=== PATIENT | female | born 1975 | race Caucasian/White ===

== ENCOUNTER 2021-10-09 12:25 | Emergency (ER) | payer OTHER, SELFPAY ==
[2021-10-09 12:42] VITALS: BP 110/62; PULSE 66; O2SAT 98
[2021-10-09 13:35] VITALS: BP 115/71; PULSE 68; TEMP 35.5; O2SAT 95; BMI 18.8
[2021-10-09 13:35] LABS: Ethanol < 10 mg/dL
[2021-10-09 13:38] LABS: Amphetamine Screen Urine Not Detected (Not Detect); Barbiturates, Urine Not Detected (Not Detect); Benzodiazepines Screen Urine POSITIVE (Not Detect); Cannabinoid Screen Urine Not Detected (Not Detect); Cocaine Screen Urine Not Detected (Not Detect); Fentanyl, urine POSITIVE (Not Detect); Opiate Screen Urine Not Detected (Not Detect); Phencyclidine Screen Urine Not Detected (Not Detect)
--- NOTE | 2021-10-09 13:40 | ED_ITS ---
HPI - Medical Clearance General Chief complaint: Medical Clearance Stated complaint: Medical Clearance Time Seen by Provider: 10/09/21 13:39 Source: patient Mode of arrival: EMS Limitations: no limitations History of Present Illness HPI Narrative: used 06/28 cyndy woo MD complaint: medical clearance requested Onset (ago): day(s) (1) Reason for Medical Clearance: intoxication Place: street Alleged Intoxication: Yes Compliant with Home Medications: Yes Traumatic Symptoms: denies traumatic injury Associated Symptoms: denies other symptoms Treatments Prior to Arrival: none Related Information Allergies Allergy/AdvReac Type Severity Reaction Status Date / Time No Known Allergies Allergy Verified 10/09/21 13:34 Review of Systems Review of Systems: Constitutional : No Fever, No Chills ENT/Mouth : No Ear Pain, No Nasal Congestion, No sore throat Eyes: No Eye Pain, No Swelling, No Redness Cardiovascular : No Chest Pain, No SOB Respiratory : No Cough, No Sputum, No Dyspnea Gastrointestinal : No Nausea, No Vomiting, No Diarrhea, No Hematochezia, No Melena Genitourinary : No Dysuria, No Urinary Frequency, No Hematuria Musculoskeletal : No Myalgias Skin : No Skin Lesions, No rash Neuro : No Weakness, No Numbness, No Paresthesias, No Dizziness, No Headache Psych : no Anxiety, no Depression, no SI/HI PMFSH Past Medical History Medical History (Updated 10/09/21 @ 13:55 by Paulina Morel DO) Substance abuse Social History Social History Advance Directives: No Physical Exam Vital Signs: Vital Signs: Last Vital Signs Temp 96 F L 10/09/21 13:35 Pulse 68 10/09/21 13:35 BP 115/71 10/09/21 13:35 Pulse Ox 95 10/09/21 13:35 BMI result Body Mass Index 18.8 Appearance: Alert. Oriented X3. No acute distress. Sleepy at times but easily woken with verbal stimuli Eyes: Pupils equal, round and reactive to light. ENT: Pharynx normal. Neck: Normal inspection. Neck supple. CVS: Normal heart rate and rhythm. Pulses normal. Respiratory: No respiratory distress. Breath sounds normal. Abdomen: Soft and non-tender. Skin: Skin warm and dry. Normal skin color. Normal skin turgor. Extremities: No lower extremity edema. Neuro: Oriented X 3. No motor deficit. No sensory deficit. Course Course Course Narrative: patient to be observed - will DC home once more awake, signed out to Jagdish JOHN but anticipate DC back to [facility] without issue MDM - Medical Clearance MDM Narrative Medical decision making narrative: 46 yo female with hx of substance abuse currently at [facility] had issue with another resident - admits to taking 1/2 of a xanny bar came here requesting urine tox so she can go back to [facility] has no SI. Will obtain Utox. She is sleepy will observe until more awake. Lab Data Labs: Lab Results 10/09/21 10/09/21 Range/Units 13:11 13:11 Urine Opiates Screen Not Detected (Not Detect) Urine Fentanyl Screen POSITIVE H (Not Detect) Ur Barbiturates Screen Not Detected (Not Detect) Ur Phencyclidine Scrn Not Detected (Not Detect) Ur Amphetamines Screen Not Detected (Not Detect) U Benzodiazepines Scrn POSITIVE H (Not Detect) Urine Cocaine Screen Not Detected (Not Detect) U Marijuana (THC) Screen Not Detected (Not Detect) Ethyl Alcohol < 10 mg/dL Discharge Plan Discharge Clinical Impression: Polysubstance abuse Patient Disposition: Home, Self-Care Instructions: Polysubstance Abuse (ED) Additional Instructions: return to ED for any worsening symptoms or concerns positive for benzodiazepines and fentanyl
[2021-10-09 16:00] VITALS: RESP 18
--- NOTE | 2021-10-09 17:23 | PC.NURSE ---
patient currently sleeping in [facility] bed per request of provider pt to discharge once more awake
== END 2021-10-09 18:52 | disposition home or self-care (01) ==
PROVIDERS: Emergency Provider Emergency Medicine
DX: F16.129 Hallucinogen abuse with intoxication, unspecified (principal); Z79.899 Other long term (current) drug therapy
CPT/HCPCS: 36415; 80307; 82077; 99283

== ENCOUNTER 2021-12-12 02:11 | Emergency (ER) | payer MEDICAID, SELFPAY ==
[2021-12-12 02:18] VITALS: BP 133/81; BP 148/80; PULSE 80; RESP 16; TEMP 36.9; O2SAT 98; BMI 29.2
--- NOTE | 2021-12-12 02:31 | ED.OVERDOSE ---
HPI - Overdose General Chief Complaint: Overdose Stated Complaint: OD Time Seen by Provider: 12/12/21 02:21 Source: EMS Mode of arrival: EMS Limitations: other (Intoxicated) History of Present Illness HPI Narrative: Patient comes to the emergency room via EMS. Patient was found outside a convenience store, patient was given 4 mg of intranasal Narcan. Patient woke up, no confused, combative. Patient unable to give any history. Patient was seen here approximately 2 months ago, her urine tested then positive for fentanyl and benzodiazepines. Related Data Previous Rx's Medication Instructions Recorded albuterol sulfate 90 mcg/actuation 2 inh inhalation Q4-6H PRN 10/09/21 breath activated powder inhaler shortness of breath or wheezing #1 ea Allergies Allergy/AdvReac Type Severity Reaction Status Date / Time No Known Allergies Allergy Verified 10/09/21 13:34 Review of Systems Review of Systems: Yes Unobtainable due to mental condition PMFSH Past Medical History Medical History Substance abuse Physical Exam Vital Signs: Vital Signs: Last Vital Signs Temp 98.4 F 12/12/21 02:18 Pulse 80 12/12/21 02:18 Resp 16 12/12/21 02:18 BP 133/81 12/12/21 02:18 Pulse Ox 98 12/12/21 02:18 O2 Del Method 12/12/21 02:18 BMI result Body Mass Index 29.2 Const: Other: Appearance: Alert. Mumbling, throwing punches at people, trying to get out of bed, intoxicated Eyes: Pupils equal, round and reactive to light. ENT: Pharynx normal. Neck: Normal inspection. Neck supple. No lymph nodes noted. No crepitus CVS: Normal heart rate and rhythm. Pulses normal. Normal S1 and S2 Respiratory: No respiratory distress. Breath sounds normal. No Wheezing. No rales Abdomen: Soft and nontender. No rigidity. No distention. Skin: Skin warm and dry. Normal skin color. Normal skin turgor. Abrasions on her knees Extremities: No lower extremity edema. No Lacerations. No Rash Neuro: No motor deficit. No sensory deficit. Moving all extremities. No slurred speech. CN 2 through 12 grossly intact Psych: Intoxicated, slightly combative, unable to redirect Course Course Course Narrative: Patient is intoxicated, awake, throwing punches. Patient does not seem to want to be aggressive but is too intoxicated. Patient is trying to get, almost fell out of bed several times. For patient's safety will go ahead and chemically restrain her. Care team consult pending for SUDE eval Patient will be kept on the monitor to keep an eye on vitals and oxygen saturation. Physician observation started at 02:35 Home Narcan has been ordered Sign-out given to Dr. Brandon mueller Discharge Plan Discharge Clinical Impression: Polysubstance abuse Patient Disposition: Still a Patient Prescriptions: No Action albuterol sulfate 90 mcg/actuation aerosol powdr breath activated 2 inh inhalation Q4-6H PRN (Reason: shortness of breath or wheezing) Qty: 1 0RF
[2021-12-12] MEDS: diphenhydrAMINE HCL 50 MG/ML VIAL IM (02:34)
[2021-12-12] MEDS: Haloperidol Lactate 5 MG/ML VIAL IM ×2 (02:34→03:23)
[2021-12-12] MEDS: LORazepam 2 MG/ML VIAL IM (02:34)
--- NOTE | 2021-12-12 02:49 | PC.NURSE ---
Addendum entered by Megan Vance RN 12/12/21 02:52: Dr Subramanian was made aware and advised this RN to pull these meds again and give to the Pt. Original Note: This RN clare up 5mg Haldol, 2mg Ativan and 50 Benedryl, when administering into Pt L thigh, the plastic hub of the needle was cracked/broken and the med came out from the hub and not into the Pt, these 3 meds were then pulled from the [facility] again and given to the PT. Security witnessed this incident.
[2021-12-12 04:32] VITALS: BP 95/58; PULSE 78; RESP 16; TEMP 36.6; O2SAT 99
[2021-12-12 06:00] VITALS: BP 98/59; PULSE 84; RESP 16; TEMP 36.6; O2SAT 96
--- NOTE | 2021-12-12 08:27 | PC.NURSE ---
Pt alert and awake. Requesting methadone dose, Rajiv from Care team will inquire and will assess for detox needs. Steady on feet
[2021-12-12 08:42] VITALS: BP 103/62; PULSE 74; RESP 18; O2SAT 93
--- NOTE | 2021-12-12 09:01 | PHA.MEDREC ---
Pharmacy Consult ? Medication Reconciliation Pharmacy has completed the medication reconciliation. Pt unresponsive and deeply asleep at time of med rec, history obtained from pt's pharmacy
--- NOTE | 2021-12-12 09:16 | MHC.RECOVSUP ---
Recovery Support note: Patient is a 46 year old Syriac speaking female who presented to [facility] ED after an accidental overdose. This expert medical writer met with patient to discuss treatment options. Patient reports she is currently on methadone through the [facility] in [place]. Taqueda confirms patient receives take home bottles of 145mg and had bottles to last her until 12/14. Patient was staying at [facility] and the staff at the [facility] were managing her bottles. Ashley at [facility] reports that patient was dosed with a bottle on 12/11 and discharged from the program that same day due to ongoing benzodiazepine and adderall use. Patient did not receive her remaining bottles upon discharge. Patient was chemically restrained while in the ED due to agitation after receiving naloxone. Patient is calm and cooperative at this time however still somnolent. Patient unable to provide details regarding her substance use at this time however she does express interest in going to detox and receiving substance use treatment. This expert medical writer will assist patient in referring to ATS facilities.
--- NOTE | 2021-12-12 11:42 | MHC.RECOVSUP ---
Addendum entered by Rajiv Palomino [facility] 12/12/21 18:07: Patient received methadone and was observed for over one hour. Patient discharged, ambulated to security and received belongings. Patient transported to [facility] via Lyft. This production underwriter received a call from hospital in [facility]. Patient presumably used substances on her way to [facility] and presented as altered, requiring transport to hospital. Original Note: Recovery Support note: Per senior research project manager at [facility], patient has been accepted for ATS. However, they report that they will not be able to give patient her methadone until tomorrow. Patient is not willing to go without receiving her methadone. Patient aware that she would have to present as more alert to receive methadone. Plan to re-evaluate patient to determine if it is appropriate for her to receive her methadone.
--- NOTE | 2021-12-12 12:56 | HO.SUDE ---
SUDE Patient denies opiate use and declines SUDE assessment. Patient agreeable to ATS referrals for benzodiazepine use.
[2021-12-12 12:57] VITALS: BP 103/60; PULSE 77; RESP 14; O2SAT 95
--- NOTE | 2021-12-12 12:58 | PC.NURSE ---
Intake completed via phone for detox. Pt sleepy but awakes easily. VSS.
[2021-12-12] MEDS: methADONE HCl 20 MG/2 ML ORAL.CONC 145 MG PO (13:14)
[2021-12-12] MEDS: Naloxone HCl Nasal TAKE HOME 4 MG SPRAY NOSTRILALT (14:55)
== END 2021-12-12 15:10 | disposition home or self-care (01) ==
PROVIDERS: Emergency Provider Emergency Medicine Emergency Medical Services
DX: T40.411A Poisoning by fentanyl or fentanyl analogs, accidental (unintentional), initial encounter (principal); Y92.9 Unspecified place or not applicable; Z79.899 Other long term (current) drug therapy; Z71.51 Drug abuse counseling and surveillance of drug abuser
CPT/HCPCS: 96372; 99285; J1200; J2060

== ENCOUNTER 2021-12-23 08:14 | Emergency (ER) | payer MEDICAID, SELFPAY ==
--- NOTE | ~2021-12-23 | XR_ITS ---
EXAMINATION: XR CHEST CLINICAL INFORMATION: OD. Consent for aspiration. COMPARISON: None TECHNIQUE: Frontal view of the chest was obtained. FINDINGS: The lungs are well-expanded and clear. There is a moderate-sized retrocardiac hiatal hernia. The heart size and pulmonary vascularity is normal. No gross bony abnormality. XR/XR chest 1V IMPRESSION: No acute cardiopulmonary process seen. There is a moderate size retrocardiac hiatal hernia.
[2021-12-23 08:27] VITALS: BP 100/60; BP 116/69; PULSE 75; PULSE 82; RESP 16; TEMP 36.7; O2SAT 95; O2SAT 98; BMI 27.3
--- NOTE | 2021-12-23 08:27 | ED_ITS ---
HPI - General Adult General Chief complaint: ETOH/Substance Use Stated complaint: DROWSEY S/P HEROIN USE,NO NARCAN GIVEN PER EMS Time Seen by Provider: 12/23/21 08:27 Source: patient and EMS Mode of arrival: EMS History of Present Illness HPI narrative: 46-year-old female with a past medical history of substance abuse presenting to the ED via EMS for suspected overdose, patient was found walking in the street with PD. Patient drowsy with EMS, no Narcan given [employer]. Unable to obtain history from patient at this time due to AMS/lethargy Onset (ago): unknown Related Data Home Medications Medication Instructions Recorded Confirmed albuterol sulfate 90 mcg/actuation 2 puff inhalation Q4H PRN wheezing 12/12/21 12/12/21 aerosol inhaler (ProAir HFA) benztropine 1 mg tablet 1 tab PO BID 12/12/21 12/12/21 fluticasone 500 mcg-salmeterol 50 1 puff inhalation BID 12/12/21 12/12/21 mcg/dose blistr powdr for inhalation (Advair Diskus) gabapentin 400 mg capsule 1 cap PO QID 12/12/21 12/12/21 melatonin 10 mg capsule 1 cap PO BEDTIME 12/12/21 12/12/21 methadone 10 mg/mL oral 145 mg PO DAILY 12/12/21 12/12/21 concentrate (Methadone Intensol) mirtazapine 7.5 mg tablet 1 tab PO BEDTIME 12/12/21 12/12/21 nitrofurantoin 1 cap PO BID 12/12/21 12/12/21 monohydrate/macrocrystals 100 mg capsule trazodone 100 mg tablet 2 tab PO BEDTIME 12/12/21 12/12/21 trazodone 50 mg tablet 2 tab PO BEDTIME PRN insomnia 12/12/21 12/12/21 Allergies Allergy/AdvReac Type Severity Reaction Status Date / Time No Known Allergies Allergy Verified 10/09/21 13:34 Review of Systems Review of Systems: unable to obtain ROS due to patient's acute mental status Yes all other systems are reviewed and are negative [facility] Past Medical History Attestation statement: The following information was validated with the patient. Medical History Substance abuse Social History Social History Advance Directives: No Advance Directives Information Provided: No Physical Exam ED Vital Signs: Vital Signs - 24 hr 12/23/21 08:27 12/23/21 10:44 12/23/21 14:03 Temperature 98.0 F Pulse Rate 82 101 H 63 Respiratory Rate 16 18 20 Blood Pressure 116/69 125/89 110/68 Pulse Oximetry 98 96 100 Oxygen Delivery Method Room Air Nasal Cannula Room Air Oxygen Flow Rate 2 12/23/21 15:17 Temperature 97.6 F Pulse Rate 61 Respiratory Rate 12 Blood Pressure 127/74 Pulse Oximetry 99 Oxygen Delivery Method Room Air Oxygen Flow Rate BMI result Body Mass Index 27.3 Const Other: Appears under the influence, lethargic, arousable to sternal rub General: no acute distress and lethargic Orientation/consciousness: lethargic Limitations: altered mental status HENMT Head: Yes normal to inspection and Yes atraumatic Ears: hearing grossly normal bilaterally General nose exam: Normal external nose present Face and sinus: Yes normal facial exam Eyes General: appearance normal, both eyes and all related structures Pupils: Pinpoint pupils bilaterally EOM: EOMs intact bilaterally Neck Neck: Yes normal visual inspection and Yes no meningeal signs Resp Effort & Inspection: normal respiratory effort and no respiratory distress Auscultation: clear to auscultation bilaterally Cardio Rate: regular rate Heart sounds: S1 normal heart sound present and S2 normal heart sound present GI Inspection: Yes normal to inspection Palpation (GI): Soft to palpation, nontender, no guarding and not rigid Skin Rashes: no rashes Neuro General: tone normal and no meningeal signs Extrem Other: MEDINA, no evidence of trauma General: Yes normal to inspection Course Course Course Narrative: -On initial arrival patient received 4 mg intranasal Narcan with positive affect, immediately requesting to leave the emergency department, & became agitated -0850--patient became very lethargic, + oral secretions, lungs coarse > concern for possible aspiration > given 0.4 mg of IV Narcan with little affect -0900--given additional dose of 0.4 mg of IV Narcan with good effect. Will continue to monitor -1000--no leukocytosis. H&H stable. Labs otherwise unremarkable. CPK mildly elevated to 307 -salicylates, acetaminophen, and ethanol negative XR chest 1V IMPRESSION: No acute cardiopulmonary process seen. There is a moderate size retrocardiac hiatal hernia. -1206--patient arousable to voice. Still sleeping comfortably, maintaining ai rway/respirations -1844--patient awake and alert, having full conversation, is safe for discharge at this time, was spoken to by coach wirer and is not interested in detox. Plan to discharge Medical Decision Making MDM Narrative Medical decision making narrative: 46-year-old female with a past medical history of substance abuse presenting to the ED via EMS for suspected overdose, patient was found walking in the street with PD. On exam vital signs stable, lethargic, appears under the influence, arousable to sternal rub, MEDINA, no evidence of trauma. Will give intranasal Narcan and monitor/observe for clinical sobriety Medical Records Medical records reviewed: Yes I reviewed the patient's medical records. Lab Data Lab results reviewed: Yes I reviewed the patient's lab results. Result diagrams: 12/23/21 09:19 12/23/21 09:19 Labs: Lab Results 12/23/21 12/23/21 12/23/21 Range/Units 09:03 09:17 09:19 WBC 9.9 (4.8-10.8) X10*3/uL RBC 4.07 L (4.20-5.50) X10*6/uL Hgb 11.8 L (12.0-16.0) g/dl Hct 35.6 L (37.0-47.0) % MCV 87.5 (80.0-98.0) fL MCH 29.0 (27.0-33.0) pg MCHC 33.1 (31.0-35.0) g/dl RDW 13.1 (11.0-16.0) % Plt Count 316 (160-400) X10*3/uL MPV 9.2 L (9.4-12.3) fL Immature Gran % (Auto) 0.4 (0.0-0.4) % Neut % (Auto) 47.8 (45-73) % Lymph % (Auto) 34.2 (20-40) % Garden % (Auto) 13.0 H (2-11) % Eos % (Auto) 4.0 (0-4) % Baso % (Auto) 0.6 (0-2) % Lymph # (Auto) 3.4 (1.2-4.9) X10*3/uL Garden # (Auto) 1.3 H (0.1-1.2) X10*3/uL Eos # (Auto) 0.4 (0.0-0.4) X10*3/uL Baso # (Auto) 0.1 (0.0-0.2) X10*3/uL Abs Immat Gran (auto) 0.04 H (0.00-0.03) X10*3/uL Absolute Neuts (auto) 4.7 (2.0-8.3) x10*3/uL Absolute Nucleated RBC 0.000 (0.0-0.012) X10*3/uL Nucleated RBC % (auto) 0.0 (0.0-0.2) /100WBC Sodium (135-145) mmol/L Potassium (3.3-5.1) mmol/L Chloride (96-108) mmol/L Carbon Dioxide (22-29) mmol/L Anion Gap (12-20) BUN (9-16) mg/dL Creatinine (0.5-1.4) mg/dL Estim Creat Clear Calc Estimated GFR POC Glucose 91 (60-115) mg/dL Random Glucose (60-115) mg/dL Lactic Acid 1.1 (0.5-2.0) mmol/L Calcium (8.4-10.2) mg/dL Magnesium (1.6-2.6) mg/dL Total Bilirubin (0.0-1.0) mg/dL Direct Bilirubin (0.0-0.5) mg/dL AST (5-31) U/L ALT (0-31) U/L Alkaline Phosphatase (39-117) U/L Total Creatine Kinase (26-140) U/L Total Protein (6.5-8.0) g/dL Albumin (3.5-5.0) g/dL Salicylates (15-30) mg/dL Acetaminophen (<30) mcg/mL Ethyl Alcohol mg/dL 12/23/21 12/23/21 Range/Units 09:19 09:19 WBC (4.8-10.8) X10*3/uL RBC (4.20-5.50) X10*6/uL Hgb (12.0-16.0) g/dl Hct (37.0-47.0) % MCV (80.0-98.0) fL MCH (27.0-33.0) pg MCHC (31.0-35.0) g/dl RDW (11.0-16.0) % Plt Count (160-400) X10*3/uL MPV (9.4-12.3) fL Immature Gran % (Auto) (0.0-0.4) % Neut % (Auto) (45-73) % Lymph % (Auto) (20-40) % Garden % (Auto) (2-11) % Eos % (Auto) (0-4) % Baso % (Auto) (0-2) % Lymph # (Auto) (1.2-4.9) X10*3/uL Garden # (Auto) (0.1-1.2) X10*3/uL Eos # (Auto) (0.0-0.4) X10*3/uL Baso # (Auto) (0.0-0.2) X10*3/uL Abs Immat Gran (auto) (0.00-0.03) X10*3/uL Absolute Neuts (auto) (2.0-8.3) x10*3/uL Absolute Nucleated RBC (0.0-0.012) X10*3/uL Nucleated RBC % (auto) (0.0-0.2) /100WBC Sodium 140 (135-145) mmol/L Potassium 4.0 (3.3-5.1) mmol/L Chloride 106 (96-108) mmol/L Carbon Dioxide 24 (22-29) mmol/L Anion Gap 14 (12-20) BUN 20 H (9-16) mg/dL Creatinine 0.84 (0.5-1.4) mg/dL Estim Creat Clear Calc 68.1 Estimated GFR > 60 POC Glucose (60-115) mg/dL Random Glucose 97 (60-115) mg/dL Lactic Acid (0.5-2.0) mmol/L Calcium 10.1 (8.4-10.2) mg/dL Magnesium 2.2 (1.6-2.6) mg/dL Total Bilirubin 0.3 (0.0-1.0) mg/dL Direct Bilirubin < 0.2 (0.0-0.5) mg/dL AST 22 (5-31) U/L ALT 24 (0-31) U/L Alkaline Phosphatase 71 (39-117) U/L Total Creatine Kinase 307 H (26-140) U/L Total Protein 7.8 (6.5-8.0) g/dL Albumin 4.6 (3.5-5.0) g/dL Salicylates < 5.0 L (15-30) mg/dL Acetaminophen < 1 (<30) mcg/mL Ethyl Alcohol < 10 mg/dL Critical Care Time Critical Care Time Critical Care Time: Yes Total Critical Care Time: 60 Attestation: I have personally provided critical care time exclusive of time spent on separately billable procedures. Time includes review of lab data, radiology results, discussion with consultants, and monitoring for potential decompensation. Intervention performed as documented. Discharge Plan Discharge Clinical Impression: Overdose Patient Disposition: Home, Self-Care Instructions: Adult Overdose (ED) Additional Instructions: Please avoid drug and alcohol use this can kill you. You nearly today. If you have thoughts of hurting herself or others please return to the emergency department Prescriptions: No Action trazodone 50 mg tablet 2 tab PO BEDTIME PRN (Reason: insomnia) gabapentin 400 mg capsule 1 cap PO QID trazodone 100 mg tablet 2 tab PO BEDTIME fluticasone propion-salmeterol [Advair Diskus] 500-50 mcg/dose blister with device 1 puff INHALATION BID benztropine 1 mg tablet 1 tab PO BID albuterol sulfate [ProAir HFA] 90 mcg/actuation HFA aerosol inhaler 2 puff inhalation Q4H PRN (Reason: wheezing) mirtazapine 7.5 mg tablet 1 tab PO BEDTIME nitrofurantoin monohyd/m-cryst 100 mg capsule 1 cap PO BID melatonin 10 mg capsule 1 cap PO BEDTIME methadone [Methadone Intensol] 10 mg/mL Concentrate 145 mg PO DAILY Referrals: [facility] [Provider Group]
[2021-12-23] MEDS: Naloxone HCl 0.4 MG/ML VIAL IVPUSH ×2 (08:53→08:58)
[2021-12-23] MEDS: ondansetron HCL 4 MG/2 ML VIAL IVPUSH (08:59)
[2021-12-23 09:23] LABS: MANUAL DIFF FLAG NO
[2021-12-23] MEDS: Naloxone HCl 2 MG/2 ML SYRINGE 1 MG IVPUSH (09:23)
[2021-12-23 09:31] LABS: Basophils Absolute Auto 0.1 X10*3/uL (0.0-0.2); Basophils Percent Auto 0.6 % (0-2); Eosinophils Absolute Auto 0.4 X10*3/uL (0.0-0.4); Hematocrit 35.6 % (37.0-47.0); Hemoglobin 11.8 g/dl (12.0-16.0); Imm Gran Abs Auto 0.04 X10*3/uL (0.00-0.03); Imm Gran Pct Auto 0.4 % (0.0-0.4); Lymphocytes Absolute Auto 3.4 X10*3/uL (1.2-4.9); Lymphocytes Percent Auto 34.2 % (20-40); Mean Corpuscular HGB Conc 33.1 g/dl (31.0-35.0); Mean Corpuscular Volume 87.5 fL (80.0-98.0); Mean Platelet Volume 9.2 fL (9.4-12.3); Monocytes Absolute Auto 1.3 X10*3/uL (0.1-1.2); Neutrophils Absolute Auto 4.7 x10*3/uL (2.0-8.3); Neutrophils Percent Auto 47.8 % (45-73); Platelet Count 316 X10*3/uL (160-400); Red Blood Count 4.07 X10*6/uL (4.20-5.50); Red Cell Distribution Width 13.1 % (11.0-16.0); White Blood Count 9.9 X10*3/uL (4.8-10.8)
[2021-12-23 09:33] LABS: Lactic Acid 1.1 mmol/L (0.5-2.0)
[2021-12-23 09:36] LABS: Glucose, Whole Blood 91 mg/dL (60-115)
[2021-12-23 09:37] LABS: Acetaminophen LAB < 1 mcg/mL (<30); Salicylate < 5.0 mg/dL (15-30)
[2021-12-23 09:39] LABS: Alanine Aminotransferase 24 U/L (0-31); Albumin Level 4.6 g/dL (3.5-5.0); Alkaline Phosphatase 71 U/L (39-117); Anion Gap 14 (12-20); Aspartate Amino Transferase 22 U/L (5-31); Bilirubin Direct < 0.2 mg/dL (0.0-0.5); Bilirubin Total 0.3 mg/dL (0.0-1.0); Blood Urea Nitrogen 20 mg/dL (9-16); Calcium 10.1 mg/dL (8.4-10.2); Carbon Dioxide 24 mmol/L (22-29); Chloride 106 mmol/L (96-108); Creatinine Clr Calc Pharmacy 68.1; Estimated Glomerular Filt Rate > 60; Ethanol < 10 mg/dL; Glucose Random 97 mg/dL (60-115); Magnesium 2.2 mg/dL (1.6-2.6); Sodium 140 mmol/L (135-145); Total Protein 7.8 g/dL (6.5-8.0)
[2021-12-23 10:44] VITALS: BP 125/89; PULSE 101; RESP 18; O2SAT 96
--- NOTE | 2021-12-23 13:02 | MHC.RECOVSUP ---
? Reason for consult:Recovery Support o Current location: ED 22 o Identified substance use concern:Heroin - Overdose - Support ? Intervention: o MAT started or to be started o ? Plan: o Follow up tomorrow o Patient awaiting crisis evaluation o Patient to follow up with [facility] after discharge ? Additional information: Patient has been Narcanned, Patient is not cooperating with T/W; Moreover patient is still impaired. F/U tomorrow.
--- NOTE | 2021-12-23 13:37 | MHC.RECOVRN ---
Recovery Team aware of pt. Please consult CARE/Recovery when pt is appropriate for SUDE.
[2021-12-23 14:03] VITALS: BP 110/68; PULSE 63; RESP 20; O2SAT 100
[2021-12-23] MEDS: 0.9 % Sodium Chloride 1,000 ML 999 ML IV (14:47)
[2021-12-23 15:17] VITALS: BP 127/74; PULSE 61; RESP 12; TEMP 36.4; O2SAT 99
[2021-12-23] MEDS: Naloxone HCl Nasal TAKE HOME 4 MG SPRAY NOSTRILALT (18:52)
--- NOTE | 2021-12-23 18:58 | MHC.RECOVSUP ---
? Reason for consult Recovery Support o Current location: ED22H o Identified substance use concern: Heroin - Overdose - Support ? Intervention: o Community resources provided o Harm reduction discussion ? Plan: o Patient to follow up with [facility] after discharge ? Additional information: Patient did not want to go to detox due to not know where her belonging are.. But patient was given info to follow up when Patient is ready
== END 2021-12-23 19:35 | disposition home or self-care (01) ==
PROVIDERS: Physician Assistant; Emergency Provider Emergency Medicine
DX: T40.1X1A Poisoning by heroin, accidental (unintentional), initial encounter (principal); R53.83 Other fatigue; F19.10 Other psychoactive substance abuse, uncomplicated; Y92.414 Local residential or business street as the place of occurrence of the external cause
CPT/HCPCS: 36415; 71045; 80048; 80076; 80143; 80179; 82077; 82550; 82947; 83605; 83735; 85025; 87040; 96361; 96374; 96375; 96376; 99284; 99285; J2405

== ENCOUNTER 2022-01-31 09:40 | Emergency (ER) | payer MEDICAID, SELFPAY ==
--- NOTE | ~2022-01-31 | XR_ITS ---
EXAMINATION: XR CHEST CLINICAL INFORMATION: Weakness COMPARISON: December 23, 2021 TECHNIQUE: 2 views of the chest were obtained. FINDINGS: Lungs are hyperinflated. No acute parenchymal disease, pneumothorax, or pleural effusion. Heart normal size. No evidence of pulmonary edema. Moderate size hiatal hernia present. XR/XR chest 2V IMPRESSION: No acute parenchymal disease. Hiatal hernia.
[2022-01-31 09:57] VITALS: BP 125/95; PULSE 91; RESP 17; TEMP 36.9; O2SAT 94
[2022-01-31 10:03] VITALS: BP 114/78; PULSE 68
[2022-01-31 11:31] VITALS: BP 122/91; PULSE 100; RESP 18; TEMP 37.1; O2SAT 99; BMI 25.6
--- NOTE | 2022-01-31 11:35 | ECG_ITS ---
Test Reason : shakiness Blood Pressure : / mmHG Vent. Rate : 088 BPM Atrial Rate : 088 BPM P-R Int : 146 ms QRS Dur : 096 ms QT Int : 370 ms P-R-T Axes : 067 006 044 degrees QTc Int : 447 ms Normal sinus rhythm Incomplete right bundle branch block Borderline ECG No previous ECGs available Referred By: Generic ED Physician Electronically Signed By:BEBE GARZON
[2022-01-31 12:16] LABS: COVID-19 Test Negative (Negative); IDNOW Serial# 16C4AD1C
[2022-01-31 15:15] VITALS: BP 135/94; PULSE 81; RESP 17; TEMP 36.6; O2SAT 97
--- NOTE | 2022-01-31 15:23 | ED.GENADULT ---
HPI - General Adult General Chief complaint: ETOH/Substance Use Stated complaint: weakness Time Seen by Provider: 01/31/22 15:12 Source: patient and EMS Mode of arrival: EMS Limitations: no limitations History of Present Illness HPI narrative: 46 yo female here with complaints of generalized weakness, muscle aches, headaches. She has history of substance abuse and received narcan yesterday after an opiate OD. Patient tells me 3 weeks ago she was at detox and then she went to [facility] after. She left one week ago. She has been on methadone but intermittently using heroin/cocaine. She had been using IV drugs >1 month ago. This past week she only sniffed her drugs. Patient wants detox. No SI/HI. No fevers, chills, cough, chest pain, shortness of breath, abdominal pain, vomiting, diarrhea. Related Data Home Medications Medication Instructions Recorded Confirmed albuterol sulfate 90 mcg/actuation 2 puff inhalation Q4H PRN wheezing 12/12/21 01/31/22 aerosol inhaler (ProAir HFA) benztropine 1 mg tablet 1 tab PO BID 12/12/21 12/12/21 fluticasone 500 mcg-salmeterol 50 1 puff inhalation BID 12/12/21 12/12/21 mcg/dose blistr powdr for inhalation (Advair Diskus) gabapentin 400 mg capsule 1 cap PO QID 12/12/21 12/12/21 melatonin 10 mg capsule 1 cap PO BEDTIME 12/12/21 12/12/21 methadone 10 mg/mL oral 145 mg PO DAILY 12/12/21 12/12/21 concentrate (Methadone Intensol) mirtazapine 7.5 mg tablet 1 tab PO BEDTIME 12/12/21 12/12/21 nitrofurantoin 1 cap PO BID 12/12/21 12/12/21 monohydrate/macrocrystals 100 mg capsule trazodone 100 mg tablet 2 tab PO BEDTIME 12/12/21 12/12/21 trazodone 50 mg tablet 2 tab PO BEDTIME PRN insomnia 12/12/21 12/12/21 Allergies Allergy/AdvReac Type Severity Reaction Status Date / Time No Known Allergies Allergy Verified 10/09/21 13:34 Review of Systems Review of Systems: Yes all other systems are reviewed and are negative Constitutional: Constitutional: Reports no additional constitutional complaints, Reports body ache(s), Denies chills, Denies fever(s), Reports headache(s) and Reports weakness Eyes: Eyes: Reports no additional eye complaints and Denies change in vision ENT: Reports system reviewed and no additional complaints, except as documented, Denies dizziness, Reports headache(s), Denies nasal congestion, Denies nasal discharge and Denies neck pain Cardiovascular: Cardiovascular: Reports no additional cardiovascular complaints, Denies chest pain, Denies leg edema and Denies dyspnea Respiratory: Respiratory: Reports no additional respiratory complaints, Denies cough and Denies dyspnea Gastrointestinal: Gastrointestinal: Reports no additional gastrointestinal complaints, Denies abdominal pain, Denies diarrhea, Denies nausea and Denies vomiting Genitourinary: Genitourinary: Reports no additional female genitourinary complaints and Denies urinary incontinence Musculoskeletal: Musculoskeletal: Reports no additional musculoskeletal complaints, Denies back pain, Denies arthralgias, Denies joint swelling, Denies neck pain, Denies numbness and Denies tingling Integumentary/Breasts: Skin/Breast: Reports system reviewed and no additional complaints, except as docu and Denies rash Neurologic: Reports system reviewed and no additional complaints, except as documented, Denies dizziness, Reports headache(s), Denies numbness, Denies tingling and Reports weakness PMFSH Past Medical History Attestation statement: The following information was validated with the patient. Source: old records reviewed and nursing notes reviewed Medical History Substance abuse Social History Social History Advance Directives: No Advance Directives Information Provided: No Physical Exam ED Vital Signs: Vital Signs - 24 hr 01/31/22 09:57 01/31/22 11:31 01/31/22 15:15 Temperature 98.5 F 98.7 F 97.8 F Pulse Rate 91 100 81 Respiratory Rate 17 18 17 Blood Pressure 125/95 H 122/91 H 135/94 H Pulse Oximetry 94 99 97 Oxygen Delivery Method Room Air Room Air Room Air BMI result Body Mass Index 25.6 Const General: cooperative, healthy appearing, comfortable and no acute distress Orientation/consciousness: patient oriented x3 Limitations: no limitations HENMT Head: Yes normal to inspection, No Moran's sign and No raccoon eyes Ears: hearing grossly normal bilaterally General nose exam: Normal external nose present Face and sinus: Yes normal facial exam Mouth: Normal oral and palatal mucosa present Throat: Yes posterior oropharynx normal, Yes tonsils normal and Yes uvula midline Eyes General: appearance normal, both eyes and all related structures Pupils: Equal, round and reactive pupils present Neck Neck: Yes normal visual inspection, Yes full ROM, Yes no lymphadenopathy and Yes no meningeal signs Chest Chest palpation & inspection: normal inspection of the chest Resp Effort & Inspection: normal respiratory effort Auscultation: clear to auscultation bilaterally Cardio Rate: regular rate Rhythm: regular rhythm Peripheral pulses: Peripheral pulses 2+ throughout GI Inspection: Yes normal to inspection Palpation (GI): Soft to palpation and nontender Back/Spine/Pelvis Thoracic/Lumbar Spine: thoracic and lumbar spine normal to inspection Skin General skin exam: no rashes or lesions noted Neuro General: patient oriented x3, moves all extremities and no meningeal signs Cranial nerves: Yes CN's II-XII intact bilaterally, Yes Equal, round and reactive pupils present, Yes Bilaterally intact EOM present, Yes Nystagmus not present, Yes Normal facial strength present and Yes Midline tongue present Cognition (Neuro): normal cognition Gait exam (Neuro): Normal gait present Motor exam (neuro): 5/5 motor strength present throughout Sensory Exam: Normal double simultaneous stimulation for sensation Extrem General: Yes normal to inspection, Yes no pedal edema and Yes no calf tenderness Course Course Course Narrative: the patient did meet with the refinery operator vapor recovery unit and has a bed at [facility] for the morning Reevaluation(s) Reevaluation #1: reviewed the patient's labs she has a mildly elevated BUN and CPK. She has received 1 L of fluid. Will give her 1 additional L of fluid. All her other labs are unremarkable. Her chest x-ray and COVID screen are negative. Cause of symptoms may be secondary to mild dehydration or from opiate withdrawal symptoms. Patient has a bed at [facility] for detox in the morning. Will place her in physician observation pending placement in detox Medical Decision Making MDM Narrative Medical decision making narrative: 46-year-old female with a history of substance abuse presents with reports of generalized weakness, muscle aches and headache. Patient also requesting detox and was Narcan yesterday for heroin overdose. Vitals are stable. Overall patient is well-appearing. No focal finding. She is afebrile. Due to medical history will obtain some labs and COVID screen. Symptoms likely secondary to opiate withdrawal. Patient did receive her methadone this morning. She will meet with the refinery operator vapor recovery unit while she was here in the emergency room Medical Records Medical records reviewed: Yes I reviewed the patient's medical records. Lab Data Lab results reviewed: Yes I reviewed the patient's lab results. Result diagrams: 01/31/22 15:51 01/31/22 16:48 Labs: Lab Results 01/31/22 01/31/22 01/31/22 Range/Units 11:50 15:51 15:51 WBC 9.1 (4.8-10.8) X10*3/uL RBC 5.50 D (4.20-5.50) X10*6/uL Hgb 15.3 D (12.0-16.0) g/dl Hct 46.5 D (37.0-47.0) % MCV 84.5 (80.0-98.0) fL MCH 27.8 (27.0-33.0) pg MCHC 32.9 (31.0-35.0) g/dl RDW 12.4 (11.0-16.0) % Plt Count 359 (160-400) X10*3/uL MPV 9.0 L (9.4-12.3) fL Immature Gran % (Auto) 0.4 (0.0-0.4) % Neut % (Auto) 65.9 (45-73) % Lymph % (Auto) 23.5 (20-40) % [place] % (Auto) 7.6 (2-11) % Eos % (Auto) 2.0 (0-4) % Baso % (Auto) 0.6 (0-2) % Lymph # (Auto) 2.1 (1.2-4.9) X10*3/uL [place] # (Auto) 0.7 (0.1-1.2) X10*3/uL Eos # (Auto) 0.2 (0.0-0.4) X10*3/uL Baso # (Auto) 0.1 (0.0-0.2) X10*3/uL Abs Immat Gran (auto) 0.04 H (0.00-0.03) X10*3/uL Absolute Neuts (auto) 6.0 (2.0-8.3) x10*3/uL Absolute Nucleated RBC 0.000 (0.0-0.012) X10*3/uL Nucleated RBC % (auto) 0.0 (0.0-0.2) /100WBC Sodium (135-145) mmol/L Potassium (3.3-5.1) mmol/L Chloride (96-108) mmol/L Carbon Dioxide (22-29) mmol/L Anion Gap (12-20) BUN (9-16) mg/dL Creatinine (0.5-1.4) mg/dL Estim Creat Clear Calc Estimated GFR Random Glucose (60-115) mg/dL Calcium (8.4-10.2) mg/dL Magnesium (1.6-2.6) mg/dL Total Bilirubin (0.0-1.0) mg/dL Direct Bilirubin (0.0-0.5) mg/dL AST (5-31) U/L ALT (0-31) U/L Alkaline Phosphatase (39-117) U/L Total Creatine Kinase (26-140) U/L Troponin I High Sens < 3.5 (<3.5-17.0) ng/L Total Protein (6.5-8.0) g/dL Albumin (3.5-5.0) g/dL Ethyl Alcohol COVID-19 ([facility]) Negative (Negative) COVID-19 Clin Com See Note 01/31/22 01/31/22 Range/Units 15:51 16:48 WBC (4.8-10.8) X10*3/uL RBC (4.20-5.50) X10*6/uL Hgb (12.0-16.0) g/dl Hct (37.0-47.0) % MCV (80.0-98.0) fL MCH (27.0-33.0) pg MCHC (31.0-35.0) g/dl RDW (11.0-16.0) % Plt Count (160-400) X10*3/uL MPV (9.4-12.3) fL Immature Gran % (Auto) (0.0-0.4) % Neut % (Auto) (45-73) % Lymph % (Auto) (20-40) % [place] % (Auto) (2-11) % Eos % (Auto) (0-4) % Baso % (Auto) (0-2) % Lymph # (Auto) (1.2-4.9) X10*3/uL [place] # (Auto) (0.1-1.2) X10*3/uL Eos # (Auto) (0.0-0.4) X10*3/uL Baso # (Auto) (0.0-0.2) X10*3/uL Abs Immat Gran (auto) (0.00-0.03) X10*3/uL Absolute Neuts (auto) (2.0-8.3) x10*3/uL Absolute Nucleated RBC (0.0-0.012) X10*3/uL Nucleated RBC % (auto) (0.0-0.2) /100WBC Sodium 135 (135-145) mmol/L Potassium 3.8 (3.3-5.1) mmol/L Chloride 100 (96-108) mmol/L Carbon Dioxide 23 (22-29) mmol/L Anion Gap 16 (12-20) BUN 47 H D (9-16) mg/dL Creatinine 1.15 (0.5-1.4) mg/dL Estim Creat Clear Calc 52.4 Estimated GFR 50 Random Glucose 107 (60-115) mg/dL Calcium 9.2 D (8.4-10.2) mg/dL Magnesium 2.3 (1.6-2.6) mg/dL Total Bilirubin 0.5 (0.0-1.0) mg/dL Direct Bilirubin 0.2 (0.0-0.5) mg/dL AST 27 (5-31) U/L ALT 25 (0-31) U/L Alkaline Phosphatase 76 (39-117) U/L Total Creatine Kinase 530 H D (26-140) U/L Troponin I High Sens (<3.5-17.0) ng/L Total Protein 8.1 H (6.5-8.0) g/dL Albumin 4.6 (3.5-5.0) g/dL Ethyl Alcohol Cancelled < 10 COVID-19 ([facility]) (Negative) COVID-19 Clin Com Imaging Data Chest x-ray: Attestation: I personally reviewed and interpreted this imaging study as follows: Radiologist's impression: [address] [address] XRay Report Signed Patient: Angelika Ng MR#: [id number] : 1975 Acct:[id number] Age/Sex: 46 / F ADM Date: 01/31/22 Loc: HO.ED Attending Dr: Ordering Physician: Liana Smith NP Date of Service: 01/31/22 Procedure(s): XR chest 2V Accession Number(s): [id number] cc: Liana Smith NP~ EXAMINATION: XR CHEST CLINICAL INFORMATION: Weakness COMPARISON: December 23, 2021 TECHNIQUE: 2 views of the chest were obtained. FINDINGS: Lungs are hyperinflated. No acute parenchymal disease, pneumothorax, or pleural effusion. Heart normal size. No evidence of pulmonary edema. Moderate size hiatal hernia present. XR/XR chest 2V IMPRESSION: No acute parenchymal disease. ? Hiatal hernia. ECG Data Attestation: I personally reviewed and interpreted this ECG as follows: Interpretation: normal sinus rhythm with a rate 88, normal NE, normal QRS, normal QT Discharge Plan Discharge Clinical Impression: Dehydration, mild, Opiate use Patient Disposition: Still a Patient Prescriptions: No Action trazodone 50 mg tablet 2 tab PO BEDTIME PRN (Reason: insomnia) gabapentin 400 mg capsule 1 cap PO QID trazodone 100 mg tablet 2 tab PO BEDTIME fluticasone propion-salmeterol [Advair Diskus] 500-50 mcg/dose blister with device 1 puff INHALATION BID benztropine 1 mg tablet 1 tab PO BID albuterol sulfate [ProAir HFA] 90 mcg/actuation HFA aerosol inhaler 2 puff inhalation Q4H PRN (Reason: wheezing) mirtazapine 7.5 mg tablet 1 tab PO BEDTIME nitrofurantoin monohyd/m-cryst 100 mg capsule 1 cap PO BID melatonin 10 mg capsule 1 cap PO BEDTIME methadone [Methadone Intensol] 10 mg/mL Concentrate 145 mg PO DAILY
[2022-01-31] MEDS: 0.9 % Sodium Chloride 1,000 ML 999 ML IV ×2 (15:53→18:14)
[2022-01-31 15:58] LABS: MANUAL DIFF FLAG NO
[2022-01-31 16:01] LABS: Basophils Absolute Auto 0.1 X10*3/uL (0.0-0.2); Basophils Percent Auto 0.6 % (0-2); Eosinophils Absolute Auto 0.2 X10*3/uL (0.0-0.4); Hematocrit 46.5 % (37.0-47.0); Hemoglobin 15.3 g/dl (12.0-16.0); Imm Gran Abs Auto 0.04 X10*3/uL (0.00-0.03); Imm Gran Pct Auto 0.4 % (0.0-0.4); Lymphocytes Absolute Auto 2.1 X10*3/uL (1.2-4.9); Lymphocytes Percent Auto 23.5 % (20-40); Mean Corpuscular HGB Conc 32.9 g/dl (31.0-35.0); Mean Corpuscular Hemoglobin 27.8 pg (27.0-33.0); Mean Corpuscular Volume 84.5 fL (80.0-98.0); Monocytes Absolute Auto 0.7 X10*3/uL (0.1-1.2); Monocytes Percent Auto 7.6 % (2-11); Neutrophils Percent Auto 65.9 % (45-73); Platelet Count 359 X10*3/uL (160-400); Red Cell Distribution Width 12.4 % (11.0-16.0); White Blood Count 9.1 X10*3/uL (4.8-10.8)
--- NOTE | 2022-01-31 16:20 | MHC.RECOVSUP ---
? Reason for consult Recovery support o Current location: ed6 o Identified substance use concern: Heroin - Seeking ATS (detox) - Support ? Intervention: o ATS bed search started [id number] o Community resources provided o Harm reduction discussion ? Plan: o Patient to follow up with [facility] after discharge ? Additional information: Patient has a bed at [facility] In the morning. Patient will be held in the ed till the Morning..
[2022-01-31 16:28] LABS: Troponin-I High Sensitivity < 3.5 ng/L (<3.5-17.0)
[2022-01-31 17:15] LABS: Alanine Aminotransferase 25 U/L (0-31); Albumin Level 4.6 g/dL (3.5-5.0); Alkaline Phosphatase 76 U/L (39-117); Anion Gap 16 (12-20); Aspartate Amino Transferase 27 U/L (5-31); Bilirubin Direct 0.2 mg/dL (0.0-0.5); Bilirubin Total 0.5 mg/dL (0.0-1.0); Blood Urea Nitrogen 47 mg/dL (9-16); Calcium 9.2 mg/dL (8.4-10.2); Carbon Dioxide 23 mmol/L (22-29); Chloride 100 mmol/L (96-108); Creatinine Clr Calc Pharmacy 52.4; Estimated Glomerular Filt Rate 50; Ethanol < 10 mg/dL; Glucose Random 107 mg/dL (60-115); Magnesium 2.3 mg/dL (1.6-2.6); Potassium 3.8 mmol/L (3.3-5.1); Sodium 135 mmol/L (135-145); Total Protein 8.1 g/dL (6.5-8.0)
--- NOTE | 2022-01-31 17:35 | PHA.MEDREC ---
MED REC COMPLETE, WILL NEED TO VERIFY METHADONE DOSE IN AM, ALSO PATIENT HAS ADVAIR AT HOME 2 PUFFS ONCE A DAY, THIS SHOULD BE CHANGED TO 1 PUFF BID Pharmacy Consult ? Medication Reconciliation Pharmacy has completed the medication reconciliation.
[2022-01-31 18:19] VITALS: BP 134/81; PULSE 83; RESP 18; O2SAT 98
[2022-01-31] MEDS: Acetaminophen 325 MG TABLET 650 MG PO (18:28)
[2022-01-31] MEDS: traZODone HCL 50 MG TABLET 150 MG PO (19:50)
[2022-01-31] MEDS: Melatonin 3 MG TABLET 6 MG PO (19:51)
--- NOTE | 2022-01-31 22:29 | MHC.CARE ---
CARE team faxed medical and demographic information to [facility] for tentative detox admission in the morning.
--- NOTE | 2022-02-01 08:46 | MHC.RECOVRN ---
Pt has bed at [facility] for 944 and will be transported via [employer] [facility].
== END 2022-02-01 09:12 ==
PROVIDERS: Emergency Provider Emergency Medicine; PCP Internal Medicine
DX: E86.0 Dehydration (principal); F19.10 Other psychoactive substance abuse, uncomplicated; R53.1 Weakness; Z20.822 Contact with and (suspected) exposure to COVID-19; F11.20 Opioid dependence, uncomplicated; F17.200 Nicotine dependence, unspecified, uncomplicated
CPT/HCPCS: 36415; 71046; 80053; 82077; 82248; 82550; 83735; 84484; 85025; 87635; 93005; 96360; 96361; 99285

== ENCOUNTER 2022-03-01 12:46 | Emergency (ER) | payer MEDICAID, SELFPAY ==
[2022-03-01 13:00] VITALS: BP 123/81; BP 123/82; PULSE 77; PULSE 88; RESP 18; TEMP 37; O2SAT 96; O2SAT 99; BMI 28.5
--- NOTE | 2022-03-01 13:05 | ED.HEATRA ---
HPI - Head Injury General Chief complaint: Fall Stated complaint: FALL PER EMS Time Seen by Provider: 03/01/22 13:04 Source: patient Mode of arrival: EMS Limitations: no limitations History of Present Illness HPI Narrative: Patient fell outside of [facility] question of head trauma, question of LOC. Thinks she might have had a seizure states that she has a history of prior seizure. Patient is not sleeping because she ran out of trazadone. Patient feels like she is withdrawing and would like the CARE team to evaluate her for detox MD Complaint: head injury Onset (ago): minute(s) Mechanism of Injury: fall Place: other Loss of Consciousness: unsure Severity: mild Related Data Home Medications Medication Instructions Recorded Confirmed albuterol sulfate 90 mcg/actuation 2 puff inhalation Q4H PRN wheezing 12/12/21 01/31/22 aerosol inhaler (ProAir HFA) fluticasone 500 mcg-salmeterol 50 1 puff inhalation BID 12/12/21 01/31/22 mcg/dose blistr powdr for inhalation (Advair Diskus) melatonin 10 mg capsule 1 cap PO BEDTIME 12/12/21 01/31/22 methadone 10 mg/mL oral 150 mg PO DAILY 12/12/21 12/12/21 concentrate (Methadone Intensol) trazodone 100 mg tablet 150 mg PO BEDTIME PRN Sleep 01/31/22 01/31/22 Allergies Allergy/AdvReac Type Severity Reaction Status Date / Time No Known Allergies Allergy Verified 10/09/21 13:34 Review of Systems Constitutional: Constitutional: Reports no additional constitutional complaints Eyes: Eyes: Reports no additional eye complaints ENT: Denies dizziness Cardiovascular: Cardiovascular: Reports no additional cardiovascular complaints Respiratory: Respiratory: Reports as per HPI Gastrointestinal: Gastrointestinal: Reports no additional gastrointestinal complaints Genitourinary: Genitourinary: Reports no additional female genitourinary complaints Musculoskeletal: Musculoskeletal: Reports no additional musculoskeletal complaints Integumentary/Breasts: Skin/Breast: Denies rash Neurologic: Reports system reviewed and no additional complaints, except as documented, Denies dizziness and Denies Sensory deficit (Neuro) Psychiatric: Psychiatric: Denies anxiety PMFSH Past Medical History Medical History Substance abuse Social History Social History Alcohol intake: former Patient Tobacco Use Status: Current everyday Tobacco user Substance Use Type: Crack/Cocaine and Heroin Advance Directives: No Advance Directives Information Provided: No Physical Exam Vital Signs: Vital Signs: Last Vital Signs Temp 98.9 F 03/01/22 16:00 Pulse 73 03/01/22 16:00 Resp 16 03/01/22 16:00 BP 130/89 03/01/22 16:00 Pulse Ox 97 03/01/22 16:00 O2 Del Method 03/01/22 16:00 BMI result Body Mass Index 28.5 Const: General: healthy appearing Nutritional Appearance: average body habitus Orientation/consciousness: oriented to person and patient oriented x3 Limitations: no limitations HEENT: Head: Yes normal to inspection Ears: external ears normal General nose exam: Normal external nose present Mouth: Normal oral and palatal mucosa present and oropharynx normal Throat: Yes posterior oropharynx normal Eyes: General: appearance normal, both eyes and all related structures Neck: Other: supple Neck: Yes normal visual inspection Chest: Chest palpation & inspection: normal inspection of the chest Resp: Auscultation: clear to auscultation bilaterally Cardio: Jugular venous distension: no JVD Rate: regular rate Rhythm: regular rhythm Heart sounds: S1 normal heart sound present and S2 normal heart sound present GI: Inspection: Yes normal to inspection Palpation (GI): Soft to palpation, nontender and No hepatosplenomegaly present Auscultation: normal bowel sounds : General: Yes no CVA tenderness Back/Spine/Pelvis: Back: no CVA tenderness Skin: General skin exam: no rashes or lesions noted Neuro: General: oriented to person and patient oriented x3 Cranial nerves: Yes CN's II-XII intact bilaterally Motor exam (neuro): 5/5 motor strength present throughout Sensory Exam: No Sensory deficit (Neuro) Extrem: General: Yes normal to inspection Psych: Appearance: grossly normal Course Reevaluation(s) Reevaluation #1: Patient placed in physician observation at 3:46pm The indication for observation is that the patient needs more time to see if she can be placed into detox. At this time the patient is well developed well nourished, lungs clear, CV RRR, abd nontender, neuro is intact Time: 15:47 MDM - Head Injury Lab Data Result diagrams: 03/01/22 14:09 03/01/22 14:09 Labs: Lab Results 03/01/22 03/01/22 03/01/22 Range/Units 14:09 14:09 14:09 WBC 5.3 (4.8-10.8) X10*3/uL RBC 4.06 L D (4.20-5.50) X10*6/uL Hgb 11.6 L D (12.0-16.0) g/dl Hct 34.9 L D (37.0-47.0) % MCV 86.0 (80.0-98.0) fL MCH 28.6 (27.0-33.0) pg MCHC 33.2 (31.0-35.0) g/dl RDW 12.3 (11.0-16.0) % Plt Count 238 D (160-400) X10*3/uL MPV 9.2 L (9.4-12.3) fL Immature Gran % (Auto) 0.4 (0.0-0.4) % Neut % (Auto) 61.5 (45-73) % Lymph % (Auto) 25.0 (20-40) % [place] % (Auto) 10.2 (2-11) % Eos % (Auto) 2.3 (0-4) % Baso % (Auto) 0.6 (0-2) % Lymph # (Auto) 1.3 (1.2-4.9) X10*3/uL [place] # (Auto) 0.5 (0.1-1.2) X10*3/uL Eos # (Auto) 0.1 (0.0-0.4) X10*3/uL Baso # (Auto) 0.0 (0.0-0.2) X10*3/uL Abs Immat Gran (auto) 0.02 (0.00-0.03) X10*3/uL Absolute Neuts (auto) 3.3 (2.0-8.3) x10*3/uL Absolute Nucleated RBC 0.000 (0.0-0.012) X10*3/uL Nucleated RBC % (auto) 0.0 (0.0-0.2) /100WBC Sodium 137 (135-145) mmol/L Potassium 4.2 (3.3-5.1) mmol/L Chloride 103 (96-108) mmol/L Carbon Dioxide 24 (22-29) mmol/L Anion Gap 14 (12-20) BUN 14 D (9-16) mg/dL Creatinine 0.69 (0.5-1.4) mg/dL Estim Creat Clear Calc 84.7 Estimated GFR > 60 Random Glucose 110 (60-115) mg/dL Calcium 9.1 (8.4-10.2) mg/dL Total Bilirubin 0.2 (0.0-1.0) mg/dL AST 44 H D (5-31) U/L ALT 48 H (0-31) U/L Alkaline Phosphatase 60 D (39-117) U/L Total Protein 7.1 (6.5-8.0) g/dL Albumin 4.0 (3.5-5.0) g/dL Urine Test (NEGATIVE) Salicylates < 5.0 L (15-30) mg/dL Urine Opiates Screen POSITIVE H (Not Detect) Urine Fentanyl Screen POSITIVE H (Not Detect) Acetaminophen < 1 (<30) mcg/mL Ur Barbiturates Screen Not Detected (Not Detect) Ur Phencyclidine Scrn POSITIVE H (Not Detect) Ur Amphetamines Screen Not Detected (Not Detect) U Benzodiazepines Scrn POSITIVE H (Not Detect) Urine Cocaine Screen POSITIVE H (Not Detect) U Marijuana (THC) Screen Not Detected (Not Detect) Ethyl Alcohol < 10 mg/dL 03/01/22 Range/Units 14:09 WBC (4.8-10.8) X10*3/uL RBC (4.20-5.50) X10*6/uL Hgb (12.0-16.0) g/dl Hct (37.0-47.0) % MCV (80.0-98.0) fL MCH (27.0-33.0) pg MCHC (31.0-35.0) g/dl RDW (11.0-16.0) % Plt Count (160-400) X10*3/uL MPV (9.4-12.3) fL Immature Gran % (Auto) (0.0-0.4) % Neut % (Auto) (45-73) % Lymph % (Auto) (20-40) % [place] % (Auto) (2-11) % Eos % (Auto) (0-4) % Baso % (Auto) (0-2) % Lymph # (Auto) (1.2-4.9) X10*3/uL [place] # (Auto) (0.1-1.2) X10*3/uL Eos # (Auto) (0.0-0.4) X10*3/uL Baso # (Auto) (0.0-0.2) X10*3/uL Abs Immat Gran (auto) (0.00-0.03) X10*3/uL Absolute Neuts (auto) (2.0-8.3) x10*3/uL Absolute Nucleated RBC (0.0-0.012) X10*3/uL Nucleated RBC % (auto) (0.0-0.2) /100WBC Sodium (135-145) mmol/L Potassium (3.3-5.1) mmol/L Chloride (96-108) mmol/L Carbon Dioxide (22-29) mmol/L Anion Gap (12-20) BUN (9-16) mg/dL Creatinine (0.5-1.4) mg/dL Estim Creat Clear Calc Estimated GFR Random Glucose (60-115) mg/dL Calcium (8.4-10.2) mg/dL Total Bilirubin (0.0-1.0) mg/dL AST (5-31) U/L ALT (0-31) U/L Alkaline Phosphatase (39-117) U/L Total Protein (6.5-8.0) g/dL Albumin (3.5-5.0) g/dL Urine Test NEGATIVE (NEGATIVE) Salicylates (15-30) mg/dL Urine Opiates Screen (Not Detect) Urine Fentanyl Screen (Not Detect) Acetaminophen (<30) mcg/mL Ur Barbiturates Screen (Not Detect) Ur Phencyclidine Scrn (Not Detect) Ur Amphetamines Screen (Not Detect) U Benzodiazepines Scrn (Not Detect) Urine Cocaine Screen (Not Detect) U Marijuana (THC) Screen (Not Detect) Ethyl Alcohol mg/dL Discharge Plan Discharge Clinical Impression: Substance abuse Patient Disposition: Home, Self-Care Instructions: Polysubstance Abuse (ED) Additional Instructions: Medically clear for detox placement Prescriptions: No Action fluticasone propion-salmeterol [Advair Diskus] 500-50 mcg/dose blister with device 1 puff INHALATION BID albuterol sulfate [ProAir HFA] 90 mcg/actuation HFA aerosol inhaler 2 puff inhalation Q4H PRN (Reason: wheezing) melatonin 10 mg capsule 1 cap PO BEDTIME methadone [Methadone Intensol] 10 mg/mL Concentrate 150 mg PO DAILY trazodone 100 mg Tablet 150 mg PO BEDTIME PRN (Reason: Sleep) Interventions: ED Discharge Assessment Last Done: 03/01/22 19:49 Discharge Date/Time: 03/01/22 19:30
[2022-03-01 14:15] LABS: MANUAL DIFF FLAG NO
[2022-03-01 14:17] LABS: Basophils Percent Auto 0.6 % (0-2); Eosinophils Absolute Auto 0.1 X10*3/uL (0.0-0.4); Eosinophils Percent Auto 2.3 % (0-4); Hematocrit 34.9 % (37.0-47.0); Hemoglobin 11.6 g/dl (12.0-16.0); Imm Gran Abs Auto 0.02 X10*3/uL (0.00-0.03); Imm Gran Pct Auto 0.4 % (0.0-0.4); Lymphocytes Absolute Auto 1.3 X10*3/uL (1.2-4.9); Mean Corpuscular HGB Conc 33.2 g/dl (31.0-35.0); Mean Corpuscular Hemoglobin 28.6 pg (27.0-33.0); Mean Platelet Volume 9.2 fL (9.4-12.3); Monocytes Absolute Auto 0.5 X10*3/uL (0.1-1.2); Monocytes Percent Auto 10.2 % (2-11); Neutrophils Absolute Auto 3.3 x10*3/uL (2.0-8.3); Neutrophils Percent Auto 61.5 % (45-73); Platelet Count 238 X10*3/uL (160-400); Red Blood Count 4.06 X10*6/uL (4.20-5.50); Red Cell Distribution Width 12.3 % (11.0-16.0); White Blood Count 5.3 X10*3/uL (4.8-10.8)
[2022-03-01 14:23] LABS: UPreg QC Valid YES; Urine Pregnancy NEGATIVE (NEGATIVE)
[2022-03-01 14:38] LABS: Amphetamine Screen Urine Not Detected (Not Detect); Barbiturates, Urine Not Detected (Not Detect); Benzodiazepines Screen Urine POSITIVE (Not Detect); Cannabinoid Screen Urine Not Detected (Not Detect); Cocaine Screen Urine POSITIVE (Not Detect); Fentanyl, urine POSITIVE (Not Detect); Opiate Screen Urine POSITIVE (Not Detect); Phencyclidine Screen Urine POSITIVE (Not Detect)
[2022-03-01 14:46] LABS: Acetaminophen LAB < 1 mcg/mL (<30); Salicylate < 5.0 mg/dL (15-30)
[2022-03-01 14:48] LABS: Alanine Aminotransferase 48 U/L (0-31); Alkaline Phosphatase 60 U/L (39-117); Anion Gap 14 (12-20); Aspartate Amino Transferase 44 U/L (5-31); Bilirubin Total 0.2 mg/dL (0.0-1.0); Blood Urea Nitrogen 14 mg/dL (9-16); Calcium 9.1 mg/dL (8.4-10.2); Carbon Dioxide 24 mmol/L (22-29); Chloride 103 mmol/L (96-108); Creatinine Clr Calc Pharmacy 84.7; Estimated Glomerular Filt Rate > 60; Ethanol < 10 mg/dL; Glucose Random 110 mg/dL (60-115); Potassium 4.2 mmol/L (3.3-5.1); Sodium 137 mmol/L (135-145); Total Protein 7.1 g/dL (6.5-8.0)
[2022-03-01 16:00] VITALS: BP 130/89; PULSE 73; RESP 16; TEMP 37.2; O2SAT 97
--- NOTE | 2022-03-01 16:44 | MHC.CARE ---
Patient accepted to [facility] for 8:00 pm intake tonight. CARE Team to arrange transportation. Provider updated.
[2022-03-01] MEDS: Acetaminophen 325 MG TABLET 650 MG PO (17:15)
== END 2022-03-01 19:30 | disposition home or self-care (01) ==
PROVIDERS: Emergency Provider Emergency Medicine
DX: F19.10 Other psychoactive substance abuse, uncomplicated (principal); F17.200 Nicotine dependence, unspecified, uncomplicated; F11.20 Opioid dependence, uncomplicated
CPT/HCPCS: 80053; 80143; 80179; 80307; 81025; 82077; 85025; 99283; 99284